=== PATIENT | female | born 1940 | race Caucasian/White ===

== ENCOUNTER 2017-04-22 15:51 | Inpatient (IN) | payer OTHER ==
[~2017-04-22] VITALS: Ht 170.2 cm; Wt 72.8 kg
--- NOTE | ~2017-04-22 | O ---
[address] [address] OPERATIVE REPORT Name: ANANT GARCIA Lb Room #: 215-P [facility] IN M.R.#: [id number] Admission: 04/22/17 Attend Phys: Mirta Ley Discharge: Date of : 36 Report #: [id number] THIS REPORT FOR: //name// CC: FAM unknown Mirta Ley DATE OF SERVICE: 04/24/2017 SERVICE: Orthopedics. FACILITY: [facility] SURGEON: Filipe Orellana MD TRIALS MANAGER: None. PREOPERATIVE DIAGNOSES: 1. Status post multiple falls. 2. Comminuted left intertrochanteric hip fracture. 3. Displaced right olecranon fracture from a separate traumatic fall. POSTOPERATIVE DIAGNOSES: 1. Status post multiple falls. 2. Comminuted left intertrochanteric hip fracture. 3. Displaced right olecranon fracture from a separate traumatic fall. PROCEDURE: 1. Closed reduction and intramedullary nailing, left intertrochanteric hip fracture. 2. Open reduction and internal fixation, right olecranon fracture. COMPLICATIONS: None. DRAINS: None. SPECIMENS: None. FINDINGS: 1. [employer] InterTan short nail. 2. Synthes olecranon plate. ESTIMATED BLOOD LOSS: 200 mL. ANESTHESIA TYPE: General. HISTORY AND INDICATIONS: The patient is a 76-year-old female who earlier this [address] [address] OPERATIVE REPORT Name: ANANT GARCIA Room #: 215-P [facility] IN [facility]#: [id number] Admission: 04/22/17 Attend Phys: Mirta Ley Discharge: Date of : 38 Report #: [id number] week fell and sustained a displaced right olecranon fracture. She was being worked up for preoperative optimization and then while she was home, she fell and sustained an intertrochanteric hip fracture 2 evenings ago. She was transferred to this hospital where she was evaluated for her pulmonary emboli and was placed on heparin and then after multispecialty coordination, she was felt optimized for surgery. Heparin was held in advance of surgery and then she proceeded for surgical repair after the risks, benefits, alternatives and indications for surgery were discussed with her in detail. The risks include but are not limited to pain, bleeding, infection, injury to nerves or blood vessels, persistent pain despite surgical intervention, malunion, nonunion, need for further surgery including hardware removal as well as revision and complications related to anesthesia such as stroke, heart attack, pulmonary complications, thromboembolic disease and . Despite these risks, she wished to proceed. PROCEDURE IN DETAIL: After the left lower extremity and right upper extremity were correctly identified in the preoperative holding area as operative extremities, the patient was taken to the operating room, placed supine on the operating table and general endotracheal anesthesia was induced without complication. She was placed on the fracture table in position. C-arm was used to assess the fracture alignment. A reduction maneuver was performed with abduction, external rotation, traction and then internal rotation and adduction and then the left lower extremity was prepped and draped in standard sterile fashion. Prophylactic antibiotics were administered at appropriate time. A time-out procedure was performed. A 1.5-inch incision was made proximal to the greater trochanter and then dissection was taken down to the trochanter. Guidepin was placed. Access was obtained to the intramedullary space of the femur and then the femur was sequentially reamed to a size 14 mm diameter reamer and then a 13 mm short [employer] InterTan nail was advanced under fluoroscopy on multiple planes to the appropriate level and then the guide pins were placed and the locking screws placed in a standard fashion. A 5 mm of compression was selected and then obtained across the fracture creating an anatomic reduction and then the set screw was placed so that no further compression occurred. The distal interlocking screw was then placed in a standard fashion. Final x-rays were taken confirming that the implants were in appropriate position and that the tip apex distance was of appropriate distance as well. Then, all the wounds were irrigated. The IT band layer was closed with 0 Vicryl suture. The skin was closed with 2-0 Vicryl followed by skin slava and a sterile dressing was applied. The patient was then transferred to a regular operating table, turned into the lateral decubitus position, again padded appropriately. The right upper extremity was prepped and draped in standard sterile fashion. A sterile tourniquet was applied and then an Esmarch was used to exsanguinate the [address] [address] OPERATIVE REPORT Name: ANANT GARCIA Room #: 215-P [facility] IN M.R.#: [id number] Admission: 04/22/17 Attend Phys: Mirta Ley Discharge: Date of : 38 Report #: [id number] extremity and tourniquet was inflated to 225 mmHg for a total of 51 minutes. A standard posterior approach to the proximal ulna was made. Dissection was taken down with full thickness skin flaps to the olecranon, which was displaced and then the hematoma was evacuated. There was a good cortical singh and so the plate was fixed to the proximal fragment after the triceps tendon was split in line with its fibers to allow the plate to be seated flush against the bone and then the plate and proximal fragment construct was held in reduced position and a provisional fixation was achieved on the plate distally as well. We then used a 3.5 cortical screw to compress the fracture x 2 and then 2.7 nonlocking screw was placed more proximally in the distal segment to close down the volar fracture surfaces well and then when this was completed, an additional compression screw was placed in the proximal tab with bicortical fixation crossing the fracture site. After locking screws were placed in the remaining portion of the proximal fragment and then final x-rays were taken confirming that all screws were extraarticular and that the reduction was anatomic, the 2.7 nonlocking screw was then switched out for a locking screw at this point and the wound was irrigated. The triceps and fascial layers were closed with 0 Vicryl suture with a [id number] stitch and then the tourniquet was let down. Hemostasis was achieved and the skin was closed with 2-0 Vicryl followed by skin slava. Sterile dressing was applied followed by a long-arm posterior slab splint, which was well padded. The patient was awakened from anesthesia and taken to recovery room in a stable condition. There were no complications and all counts were recorded as correct. <ELECTRONICALLY SIGNED> By: Filipe Orellana MD 04/25/17 0711 [id number] [id number] Filipe Orellana MD /nt
--- NOTE | ~2017-04-22 | HC ---
[facility] [place] [address] CONSULTATION Name: ANANT GARCIA Room #: 215-P [facility]..#: [id number] Admission: 04/22/17 Attend Phys: Mirta Ley Discharge: 04/28/17 Date of : 38 Report #: [id number] THIS REPORT FOR: //name// CC: FAM unknown Mirta Ley REFERRAL PHYSICIAN: Luca Andujar DO REASON FOR REFERRAL: Pulmonary embolus. HISTORY OF PRESENT ILLNESS: The patient is a 76-year-old white female who was transferred from [facility] following a fall. She has sustained a left hip fracture. She was also found to have pulmonary embolus. For that reason, a pulmonary consultation was requested. The patient had fallen earlier, sustaining right olecranon fracture. This occurred about 2 weeks ago. Two days ago, she fell again, this time she sustained a left hip fracture. When she was evaluated at [facility], patient was found to be hypoxic, saturation was said to be in the 70s. CT chest angiogram revealed small right lower lobe pulmonary embolus. The patient also states that she just simply passed out, resulting in a fall. Presently, she denies any dyspnea, chest pain or hemoptysis. She denies any past history of venothromboembolic disease. The patient does smoke and has smoked up to recently. PAST MEDICAL HISTORY: Notable for hypertension, hyperlipidemia, history of depression, tobacco abuse. PAST SURGICAL HISTORY: Remarkable for laminectomy, herniorrhaphy, hysterectomy, appendectomy. ALLERGIES: None noted. HOME MEDICATIONS: Include Ambien, Tessalon Perles, Flexeril, Fosamax, Lasix, hydrocodone, Lexapro, Zestril, Lopressor, Protonix, Paxil, Zocor, tramadol, Zofran, niacin, Advil, and multivitamins. FAMILY HISTORY: Noncontributory. SOCIAL HISTORY: She is single, continues to smoke about a pack a day. She lives by herself independently. [facility] [address] [place] [address] CONSULTATION Name: ANANT GARCIA Room #: 215-P [facility] IN M..#: [id number] Admission: 04/22/17 Attend Phys: Darieljudy Nadir Laya Discharge: 04/28/17 Date of : 38 Report #: [id number] REVIEW OF SYSTEMS: As mentioned above, otherwise 10-point system review negative. PHYSICAL EXAMINATION: GENERAL: She is awake, alert, in no apparent distress. VITAL SIGNS: Temperature is 98 degrees Fahrenheit, pulse is 84, respiratory rate is 18, blood pressure 174/93 mmHg and saturation 96%. HEENT: Normocephalic, atraumatic. NECK: Supple, without lymphadenopathy or thyromegaly. CHEST: Breath sounds are fair due to poor effort. Few scattered crackles in the bases. No wheezes. CARDIOVASCULAR: Normal S1, S2. There are no murmurs or gallop. There is no JVD. There is no carotid bruit. Pulses are 2+/4+ bilaterally. ABDOMEN: Soft, nontender, no organomegaly or masses felt. GENITOURINARY: Deferred. RECTAL: Deferred. EXTREMITIES: Remarkable for right upper forearm in a cast. Otherwise, no cyanosis, clubbing or edema. IMAGING: Echocardiogram revealed normal LV size, ejection fraction 60%-65%, dilated left atrium, pulmonary artery pressure measuring 48 mmHg, otherwise unremarkable. Right elbow x-ray revealed fracture involving the olecranon process of the proximal ulnar. Left hip x-ray revealed left intertrochanteric femur fracture. EKG shows left ventricular hypertrophy. CT chest angiogram noted, though I could not find a copy for review. IMPRESSION: 1. Small right lower lobe pulmonary embolus. 2. Apparent syncope. 3. Recurrent falls, sustaining a right olecranon fracture, left hip fracture. RECOMMENDATION AND DISCUSSION: The patient's current pulmonary embolus is likely related to a recent fall, sustaining right upper forearm fracture. It is likely the cause of the patient's recent syncope. Agree with anticoagulation for now. If surgery is planned, we may need to consider placing a retrievable IVC filter. This can be removed several weeks later once patient stabilizes. Her pulmonary embolus is provoked and we will recommend at least 6-12 months [place] [address] CONSULTATION Name: ANANT GARCIA Room #: 215-P [facility] IN M.R.#: [id number] Admission: 04/22/17 Attend Phys: Mirta Ley Discharge: 04/28/17 Date of : 36 Report #: [id number] Thank you for this consultation. <ELECTRONICALLY SIGNED> By: Ernst Rodriguez MD 05/03/17 1920 1501 0715 Ernst Rodriguez MD /nt
--- NOTE | ~2017-04-22 | EKG ---
[address] [place] [employer] [place] [address] ELECTROCARDIOGRAM REPORT Name: ANANT GARCIA Room #: 215- [facility] IN M.R.#: [id number] Admission: 04/22/17 Attend Phys: Mirta Ley Discharge: Date of : 38 Report #: [id number] THIS REPORT FOR: //name// [facility] Test Date: 2017-04-23 Test Time: 09:08:50 Pat Name: ANANT GARCIA Department: Room: 215 P Gender: F Historic Interpreter: SCOTTIE : 1940 Requested By: Chacorta Navarro Order Number: [id number] MD: Adolfo Julian Measurements Intervals [place] Rate: 87 P: 72 NC: 147 QRS: 54 QRSD: 92 T: 80 QT: 366 QTc: 441 Interpretive Statements Sinus rhythm Probable left atrial enlargement Left ventricular hypertrophy Compared to ECG 06/03/1992 17:50:00 Left ventricular hypertrophy now present Sinus arrhythmia no longer present Short NC interval no longer present Electronically Signed On 04-23-2017 15:33:23 CDT by Adolfo Julian [email or web address] <ELECTRONICALLY SIGNED> By: Adolfo Julian MD 04/23/17 1533 0908 0908 Adolfo Julian MD /EPI
--- NOTE | ~2017-04-22 | 2DMMODE ---
[facility] [address] [place] [address] 2 D/M-MODE ECHOCARDIOGRAM Name: LIBRACARROLANANT Room #: 215-P [facility] IN ..#: [id number] Admission: 04/22/17 Attend Phys: Mirta Reynolds Discharge: Date of : 36 Date of Service: 04/23/17 1105 Report #: [id number] THIS REPORT FOR: //name// APPROVED REPORT Study performed: 04/23/2017 09:53:31 EXAM: Comprehensive 2D, Doppler, and color-flow Echocardiogram Patient Location: Bedside Room #: [facility] Status: routine BSA: 1.81 HR: 83 bpm BP: 183/80 mmHg Other Information Study Quality: Good Indications Pulmonary Embolism Pulmonary Hypertension Syncope Hypertension/HDD 2D Dimensions RVDd: 37.77 mm LVEF(%): 67.33 (>50%) IVSd: 11.51 (7-11mm) LVOT Diam: 21.44 (18-24mm) LVDd: 40.05 mm PWd: 11.91 (7-11mm) Ascending Ao: 30.08 (22-36mm) LVDs: 25.27 (25-40mm) Aortic Root: 30.01 mm IVC: 18.00 mm Gonzalez's LVEF: 67.33 % Volumes Left Atrial Volume (Systole) Single Plane 4CH: 60.59 mL Single Plane 2CH: 54.49 mL LA ESV Index: 35.00 mL/m2 Aortic Valve AoV Peak Ha.: 1.46 m/s AO Peak Gr.: 8.49 mmHg LVOT Max P.60 mmHg LVOT Max V: 1.07 m/s CISCO Vmax: 2.65 cm2 Mitral Valve [facility] [address] [place] [address] [place] [address] 2 D/M-MODE ECHOCARDIOGRAM Name: ANANT GARCIA Lb Room #: 215-P [facility] IN [facility].#: [id number] Admission: 04/22/17 Attend Phys: Mirta Reynolds Discharge: Date of : 36 Date of Service: 04/23/17 1105 Report #: [id number] E/A Ratio: 1.1 MV Decel. Time: 165.87 ms MV E Max Ha.: 0.96 m/s MV A Ha.: 0.87 m/s MV PHT: 48.10 ms IVRT: 83.04 ms Pulmonary Valve PV Peak Ha.: 0.75 m/s PV Peak Gr.: 2.26 mmHg Pulmonary Vein P Vein S: 0.74 m/s P Vein A: 0.38 m/s P Vein D: 0.46 m/s P Vein A Dur.: 115.3 msec P Vein S/D Ratio: 1.61 Tricuspid Valve TR Peak Ha.: 3.28 m/s TR Peak Gr.: 43.16 mmHg PA Pressure: 48.00 mmHg Left Ventricle The left ventricle is normal size. Mild concentric left ventricular hypertrophy. The left ventricular systolic function is normal. The left ventricular ejection fraction is within the normal range. LVEF is 60-65%. Grade II - pseudonormal filling dynamics. Right Ventricle The right ventricle is normal size. The right ventricular systolic function is normal. Atria Left atrium is dilated. Right atrium is at the upper limits of normal. Aortic Valve The aortic valve is normal in structure. Aortic valve is calcified. No aortic regurgitation is present. There is no aortic valvular stenosis. Mitral Valve The mitral valve is normal in structure. Trace mitral regurgitation. No evidence of mitral valve stenosis. Tricuspid Valve The tricuspid valve is normal in structure. There is trace to mild tricuspid regurgitation. There is moderate pulmonary hypertension. [facility] [address] [place] [address] 2 D/M-MODE ECHOCARDIOGRAM Name: ANANT GARCIA Lb Room #: 215-P [facility] IN [facility]#: [id number] Admission: 04/22/17 Attend Phys: Mirta Reynolds Discharge: Date of : 36 Date of Service: 04/23/17 1105 Report #: [id number] Estimated PAP 48 mmHg. Pulmonic Valve The pulmonary valve is normal in structure. There is no pulmonic valvular regurgitation. Great Vessels The aortic root is normal in size. IVC is normal in size and collapses >50% with inspiration. Pericardium There is no pericardial effusion. <Conclusion> The left ventricle is normal size. LVEF is 60-65%. Left atrium is dilated. The aortic valve is normal in structure. Aortic valve is calcified. The mitral valve is normal in structure. Trace mitral regurgitation. The tricuspid valve is normal in structure. There is trace to mild tricuspid regurgitation. There is moderate pulmonary hypertension. Estimated PAP 48 mmHg. The pulmonary valve is normal in structure. <ELECTRONICALLY SIGNED> By: James Avila MD 04/23/17 1105 1105 1105 James Avila MD /INF
--- NOTE | ~2017-04-22 | HC ---
[facility] [place] [address] [place] [address] CONSULTATION Name: ANANT GARCIA Room #: 215-P [facility] IN ..#: [id number] Admission: 04/22/17 Attend Phys: Mirta Ley Discharge: Date of : 38 Report #: [id number] THIS REPORT FOR: //name// CC: FAM unknown Mirta Ley DATE OF SERVICE: 04/26/2017 HISTORY OF PRESENT ILLNESS: The patient is a 76-year-old white female admitted through [facility] after history of multiple falls. She was noted to have syncopal episode and had a left hip fracture as well as a right olecranon fracture. She also was noted to be significantly hypoxic and was diagnosed with a pulmonary embolism and was started on heparin while at [facility]. Here at [facility], she underwent IVC filter placement on 04/23/2017 and then underwent closed reduction intramedullary chandu placement of a left hip intertrochanteric fracture as well as ORIF of the right olecranon fracture on 04/24/2017. She is allowed weightbearing as tolerated on left lower extremity and is allowed weightbearing as tolerated with use of the platform for the right upper extremity. She has had some problems with some confusion/delirium. We are seeing her in rehabilitation medicine consultation. PAST MEDICAL HISTORY: Includes hypertension, hyperlipidemia, depression, insomnia, chronic back pain, spinal stenosis with laminectomy in 2017. ALLERGIES: No known drug allergies. MEDICATIONS: Please see the full medication listing. SOCIAL HISTORY: The patient lives in a house. Did not utilize gait aids, one step in. Son lives with her and he apparently works at least some. REVIEW OF SYSTEMS: Did not offer any current complaints of chest pain, shortness of breath or abdominal discomfort. She has some discomfort involving the right elbow and left hip as expected. No other focal pain complaints. She does have some chronic low back pain which is a premorbid problem. PHYSICAL EXAMINATION: GENERAL: She is a pleasant 76-year-old white female in no obvious distress. NEUROLOGIC: She is pleasantly confused. She knew the month, but was incorrect regarding the year and also thought she was back in [place], [place]. She nevertheless was cooperative, follows basic commands, conversant. Facies appeared symmetric. Functional range of motion of the left upper extremity without focal weakness. Right upper extremity reveals the dressing placed over the elbow. Appears to have good movement of the right hand. Left lower extremity: The left hip is dressed. She can move that left distal lower extremity. Dorsiflexion is greater than antigravity. Functional range of [facility] [address] [place] [address] CONSULTATION Name: ANANT GARCIA Room #: 215-P [facility] IN ..#: [id number] Admission: 04/22/17 Attend Phys: Mirta Ley Discharge: Date of : 38 Report #: [id number] motion of the right lower extremity with strength at least a grade 4-/5. She is demonstrating normal tone. She has poor sitting balance and is max assist to come to stand. ASSESSMENT: A 76-year-old white female with the following problem list: 1. Left hip intertrochanteric fracture status post closed reduction intramedullary nail, allowed weightbearing as tolerated. 2. ORIF of the right olecranon fracture, to use the platform attachment. 3. Pulmonary embolism, is on heparin with transition to Coumadin. 4. Delirium/multifactorial encephalopathy. 5. History of recurrent falls with syncope. Cardiology is involved. 6. Hypertension. 7. Probable chronic obstructive pulmonary disease. 8. Tobacco dependency, apparently was on O2, 2 liters at night for obstructive sleep apnea. 9. Pulmonary hypertension. 10. Recurrent falls. PLAN: We are assessing the patient regarding a potential acute 5 [place] inpatient rehabilitation stay. We will need to see how she does with the tolerance of therapies. We will be glad to follow along with you regarding her rehab therapy needs. By: 1143 0714 Gerard Adler MD /PMT
[2017-04-22 20:34] VITALS: BP 198/90
[2017-04-22] MEDS ORDERED: AMBIEN 5 MG TABL5 M1 PO (21:48)
[2017-04-22] MEDS ORDERED: TESSALON PERLE100 MG PO (21:49)
[2017-04-22] MEDS ORDERED: FLEXERIL PO (21:49)
[2017-04-22] MEDS ORDERED: FOSAMAX 70 MG T70 MG PO (21:50)
[2017-04-22] MEDS ORDERED: LASIX 20 MG TAB20 MG PO (21:50)
[2017-04-22] MEDS ORDERED: HYDROCODONE-AP1 EAC6 PO (21:52)
[2017-04-22] MEDS ORDERED: LEXAPRO 10 MG T10 M2 PO (21:52)
[2017-04-22] MEDS ORDERED: LISINOPRIL10 MG PO (21:53)
[2017-04-22] MEDS ORDERED: LOPRESSOR25 PO (21:53)
[2017-04-22] MEDS ORDERED: PROTONIX40 M1 PO (21:54)
[2017-04-22] MEDS ORDERED: LOPRESSOR50 PO (21:54)
[2017-04-22] MEDS ORDERED: PAXIL10 MG PO (21:55)
[2017-04-22] MEDS ORDERED: TRAMADOL 50 MG50 MG PO (21:55)
[2017-04-22] MEDS ORDERED: SIMVASTATIN40 MG PO (21:55)
[2017-04-22] MEDS ORDERED: ONDANSETRON HCL4 M2 PO (21:56)
[2017-04-22] MEDS ORDERED: VITAMIN D250000 UNIT PO (21:58)
[2017-04-22] MEDS ORDERED: NIACIN500 M2 PO (21:58)
[2017-04-22] MEDS ORDERED: FLAX OIL1000 MG PO (21:59)
[2017-04-22] MEDS ORDERED: [UNRECOGNIZED DRUG - OTHER] PO (22:02)
[2017-04-22] MEDS ORDERED: STOOL SOFTENER100 MG PO (22:02)
[2017-04-22] MEDS ORDERED: VEGETABLE LAXA8.6 M1 PO (22:03)
[2017-04-22] MEDS ORDERED: IBUPROFEN 200200 M1 PO (22:04)
[2017-04-22] MEDS ORDERED: CENTRUM SILVER1 EAC6 PO (22:05)
[2017-04-22] MEDS ORDERED: PYRIDOXINE HCL50 MG PO (22:05)
[2017-04-22 22:49] VITALS: BP 182/87
[2017-04-22 23:41] LABS: HEMATOCRIT 37.2 % (37.0-47.0); HEMOGLOBIN 12.6 gm/dL (12.0-15.0); MCH 28.9 pg (26.0-34.0); RBC 4.37 mil/uL (4.20-5.00); RDW 13.7 % (10.5-14.5); WBC 8.4 thou/uL (4.0-11.0)
[2017-04-22 23:49] LABS: ANION GAP 7 mmol/L (7-16); BUN 12 mg/dL (7-18); CALCIUM 8.6 mg/dL (8.5-10.1); CHLORIDE 101 mmol/L (98-107); CO2 29 mmol/L (21-32); CREATININE 0.5 mg/dL (0.6-1.0); GLUCOSE 115 mg/dL (74-106); POTASSIUM 3.5 mmol/L (3.5-5.1); SODIUM 137 mmol/L (136-145)
[2017-04-22 23:57] LABS: ALBUMIN 3.1 g/dL (3.4-5.0); ALKALINE PHOSPHATASE 62 U/L (46-116); SGOT 17 U/L (15-37); SGPT 20 U/L (30-65); TOTAL BILIRUBIN 0.4 mg/dL (<0.1-1.0); TOTAL PROTEIN 6.5 g/dL (6.4-8.2); TROPONIN-I < 0.04 ng/mL (<0.04-0.07)
[2017-04-22 23:58] LABS: APTT 34.8 Seconds (24.5-32.8); PROTIME 10.3 Seconds (9.3-11.4)
[2017-04-23] VITALS (7 sets, daily range): BP systolic 130–200; BP diastolic 62–101
[2017-04-23 06:32] LABS: HEMATOCRIT 38.7 % (37.0-47.0); HEMOGLOBIN 12.7 gm/dL (12.0-15.0); MCH 28.1 pg (26.0-34.0); MCHC 32.8 g/dL (28.0-37.0); MCV 85.8 fL (80.0-100.0); RBC 4.52 mil/uL (4.20-5.00); RDW 13.8 % (10.5-14.5); WBC 8.2 thou/uL (4.0-11.0)
[2017-04-23 06:44] LABS: CALCIUM 8.8 mg/dL (8.5-10.1); CREATININE 0.6 mg/dL (0.6-1.0); POTASSIUM 3.5 mmol/L (3.5-5.1)
[2017-04-24 00:56] LABS: APTT 41.1 Seconds (24.5-32.8); PROTIME 10.5 Seconds (9.3-11.4)
[2017-04-24 04:38] VITALS: BP 188/88
[2017-04-24 06:35] LABS: HEMATOCRIT 34.2 % (37.0-47.0); HEMOGLOBIN 11.8 gm/dL (12.0-15.0); MCH 29.3 pg (26.0-34.0); MCHC 34.4 g/dL (28.0-37.0); MCV 85.1 fL (80.0-100.0); RBC 4.01 mil/uL (4.20-5.00); RDW 13.4 % (10.5-14.5); WBC 7.4 thou/uL (4.0-11.0)
[2017-04-24 06:50] LABS: ALBUMIN 2.6 g/dL (3.4-5.0); CALCIUM 8.5 mg/dL (8.5-10.1); CREATININE 0.5 mg/dL (0.6-1.0); PHOSPHORUS 1.8 mg/dL (2.5-4.9); POTASSIUM 3.3 mmol/L (3.5-5.1)
[2017-04-24 07:50] VITALS: BP 180/72
[2017-04-24 14:00] VITALS: BP 149/72
[2017-04-24 15:20] VITALS: BP 128/56
[2017-04-24 19:54] VITALS: BP 157/69
[2017-04-24 23:20] VITALS: BP 147/61
[2017-04-25] VITALS (7 sets, daily range): BP systolic 140–1711; BP diastolic 66–75
[2017-04-25 06:26] LABS: HEMATOCRIT 28.1 % (37.0-47.0); MCH 29.6 pg (26.0-34.0); MCHC 34.9 g/dL (28.0-37.0); MCV 84.8 fL (80.0-100.0); RBC 3.32 mil/uL (4.20-5.00); RDW 13.7 % (10.5-14.5); WBC 8.8 thou/uL (4.0-11.0)
[2017-04-25 06:27] LABS: HEMOGLOBIN 9.8 gm/dL (12.0-15.0)
[2017-04-25 06:36] LABS: APTT 42.3 Seconds (24.5-32.8); INR 1.1; PROTIME 10.9 Seconds (9.3-11.4)
[2017-04-25 06:38] LABS: ALBUMIN 2.2 g/dL (3.4-5.0); CALCIUM 8.2 mg/dL (8.5-10.1); CREATININE 0.6 mg/dL (0.6-1.0); PHOSPHORUS 1.5 mg/dL (2.5-4.9); POTASSIUM 3.6 mmol/L (3.5-5.1); TOTAL BILIRUBIN 0.4 mg/dL (<0.1-1.0); TOTAL PROTEIN 5.3 g/dL (6.4-8.2)
[2017-04-26 03:30] VITALS: BP 170/70
[2017-04-26 03:33] LABS: HEMATOCRIT 27.3 % (37.0-47.0); HEMOGLOBIN 9.3 gm/dL (12.0-15.0); MCH 28.6 pg (26.0-34.0); MCV 84.2 fL (80.0-100.0); RBC 3.24 mil/uL (4.20-5.00); RDW 13.8 % (10.5-14.5); WBC 7.9 thou/uL (4.0-11.0)
[2017-04-26 03:45] LABS: ALBUMIN 2.1 g/dL (3.4-5.0); CALCIUM 8.3 mg/dL (8.5-10.1); CREATININE 0.4 mg/dL (0.6-1.0); POTASSIUM 3.2 mmol/L (3.5-5.1); TOTAL BILIRUBIN 0.5 mg/dL (<0.1-1.0); TOTAL PROTEIN 5.5 g/dL (6.4-8.2)
[2017-04-26 04:16] LABS: INR 1.1; PROTIME 10.8 Seconds (9.3-11.4)
[2017-04-26 07:53] VITALS: BP 167/53
[2017-04-26 11:34] VITALS: BP 119/56
[2017-04-26 16:29] VITALS: BP 136/59
[2017-04-26 19:26] VITALS: BP 189/83
[2017-04-26 23:29] VITALS: BP 172/75
[2017-04-27 04:49] LABS: HEMOGLOBIN 8.7 gm/dL (12.0-15.0); MCH 28.3 pg (26.0-34.0); MCHC 33.6 g/dL (28.0-37.0); MCV 84.3 fL (80.0-100.0); RBC 3.08 mil/uL (4.20-5.00); RDW 13.8 % (10.5-14.5); WBC 7.8 thou/uL (4.0-11.0)
[2017-04-27 04:57] LABS: ABSOLUTE RETIC COUNT 0.0615 10^6/uL; OBSERVED RETIC COUNT 1.99 % (0.6-2.6)
[2017-04-27 05:01] LABS: INR 1.1; PROTIME 11.1 Seconds (9.3-11.4)
[2017-04-27 05:04] LABS: APTT 73.7 Seconds (24.5-32.8)
[2017-04-27 05:33] LABS: ALBUMIN 2.1 g/dL (3.4-5.0); CALCIUM 8.3 mg/dL (8.5-10.1); CREATININE 0.4 mg/dL (0.6-1.0); MAGNESIUM 1.8 mg/dL (1.8-2.4); POTASSIUM 3.1 mmol/L (3.5-5.1); TOTAL BILIRUBIN 0.5 mg/dL (<0.1-1.0); TOTAL PROTEIN 5.5 g/dL (6.4-8.2)
[2017-04-27 06:34] VITALS: BP 168/75
[2017-04-27 07:25] VITALS: BP 139/60
[2017-04-27 11:20] VITALS: BP 158/76
[2017-04-27 15:15] VITALS: BP 126/53
[2017-04-27 19:11] VITALS: BP 137/54
[2017-04-28 03:40] VITALS: BP 155/84
[2017-04-28 04:03] LABS: HEMATOCRIT 26.5 % (37.0-47.0); HEMOGLOBIN 8.8 gm/dL (12.0-15.0); MCH 28.5 pg (26.0-34.0); MCHC 33.2 g/dL (28.0-37.0); MCV 85.6 fL (80.0-100.0); PLATELET COUNT 249 thou/uL (150-400); RBC 3.09 mil/uL (4.20-5.00); WBC 6.2 thou/uL (4.0-11.0)
[2017-04-28 04:06] LABS: MANUAL DIFF YES
[2017-04-28 04:16] LABS: CALCIUM 8.8 mg/dL (8.5-10.1); CREATININE 0.5 mg/dL (0.6-1.0); POTASSIUM 3.6 mmol/L (3.5-5.1)
[2017-04-28 04:30] LABS: ABSOLUTE NEUTROPHILS 3.2 thou/uL (1.4-8.2); TOTAL CELL COUNT 100
[2017-04-28 08:03] VITALS: BP 146/62
[2017-04-28] MEDS ORDERED: HYDROCODONE-AP1 EAC6 PO (09:00)
[2017-04-28] MEDS ORDERED: ENOXAPARIN80 MG/0.1 SUBQ ×2 (10:45→10:49)
[2017-04-28] MEDS ORDERED: DUONEB 2.5-0.5 M3 ML INH (10:45)
[2017-04-28] MEDS ORDERED: FERREX 150 PLU1 EAC1 PO (10:49)
[2017-04-28] MEDS ORDERED: ALDACTONE25 MG PO (10:49)
[2017-04-28] MEDS ORDERED: COUMADIN 5 MG TA5 M1 PO (10:49)
[2017-04-28 11:06] LABS: PROTIME 19.2 Seconds (9.3-11.4)
[2017-04-28 11:08] LABS: INR 1.9
[2017-04-28 11:32] VITALS: BP 145/74
== END 2017-04-28 14:00 | DRG 166 ==
LOC: 2N 15:51
PROVIDERS: Hospitalist; Internal Medicine; Nurse Practitioner Family
PROC: 06H03DZ Insertion of Intraluminal Device into Inferior Vena Cava, Percutaneous Approach (ICD-10-PCS; 2017-04-23)
PROC: 0PSK04Z Reposition Right Ulna with Internal Fixation Device, Open Approach (ICD-10-PCS; principal; 2017-04-24)
PROC: 0QS736Z Reposition Left Upper Femur with Intramedullary Internal Fixation Device, Percutaneous Approach (ICD-10-PCS; 2017-04-24)
DX: I26.99 Other pulmonary embolism without acute cor pulmonale (principal); S72.142A Displaced intertrochanteric fracture of left femur, initial encounter for closed fracture; I10 Essential (primary) hypertension; E78.5 Hyperlipidemia, unspecified; F32.9 Major depressive disorder, single episode, unspecified; F17.210 Nicotine dependence, cigarettes, uncomplicated; G89.29 Other chronic pain; M54.9 Dorsalgia, unspecified; I27.20 Pulmonary hypertension, unspecified; S52.021A Displaced fracture of olecranon process without intraarticular extension of right ulna, initial encounter for closed fracture; W18.39XA Other fall on same level, initial encounter; K59.00 Constipation, unspecified; G47.00 Insomnia, unspecified; E78.00 Pure hypercholesterolemia, unspecified; E87.6 Hypokalemia; E83.39 Other disorders of phosphorus metabolism; Z90.710 Acquired absence of both cervix and uterus; Z90.49 Acquired absence of other specified parts of digestive tract; Y93.89 Activity, other specified; Y92.89 Other specified places as the place of occurrence of the external cause; Y99.8 Other external cause status; Z71.6 Tobacco abuse counseling; Z28.21 Immunization not carried out because of patient refusal; D50.0 Iron deficiency anemia secondary to blood loss (chronic)
CPT/HCPCS: 10081; 50010; 50101; 50386; 51412; 51538; 51739; 52304; 55430; 55445; 56525; 56528; 56667; 57091; 57092; 62110; 62900; 70005